=== PATIENT | female | born 1965 | race Caucasian/White ===

== ENCOUNTER 2016-11-11 15:58 | Inpatient (IN) ==
[2016-11-11] MEDS ORDERED: IOPAMIDOL 100 ML BOTTLE IJ ONE (15:59)
[2016-11-11] MEDS ORDERED: ONDANSETRON 4 MG/2 ML VIAL IV ONE (16:22)
[2016-11-11] MEDS ORDERED: fentaNYL 100 MCG/2 ML VIAL IV ONE (16:22)
[2016-11-11] MEDS ORDERED: 0.9 % SODIUM CHLORIDE 2,000 ML IV ONE (16:22)
[2016-11-11] MEDS ORDERED: cefTRIAXone 2 GM in DEXTROSE 5% IN WATER 50 ML IV ONE (16:26)
[2016-11-11] MEDS ORDERED: POTASSIUM CHLORIDE 40 MEQ in DEXTROSE 5% IN WATER 500 ML IV ONE (16:41)
[2016-11-11] MEDS ORDERED: POTASSIUM CHLORIDE 20 MEQ/10 ML VIAL IV ONE ×2 (16:59→22:06)
[2016-11-11 17:19] LABS: Basophils # (Auto) 0 K/mcL (0.0-0.3); Basophils % (Auto) 0 % (0.0-2.0); Eosinophils # (Auto) 0 K/mcL (0.0-0.7); Eosinophils % (Auto) 0 % (0.0-7.0); Lymphocytes # (Auto) 0.7 K/mcL (1.5-4.8); Lymphocytes % (Auto) 4.7 % (15.5-49.0); Mean Cell Volume 91.6 fL (80.0-100.0); Mean Corpuscular HGB Conc 32.8 g/dL (31.0-36.0); Mean Corpuscular Hemoglobin 30.1 pg (26.0-34.0); Monocytes % (Auto) 6.3 % (1.0-9.0); Platelet Count 210 K/mcL (140-440); RBC 4.52 M/mcL (4.00-5.20); Red Cell Distribution Width 12.3 % (11.5-14.5)
[2016-11-11] MEDS: HYDROmorphone 2 MG/ML SYRINGE IV PRN ×2 (17:27→18:02)
[2016-11-11 17:30] LABS: Appearance,Urine TURBID; Bacteria,Urine MOD /hpf (0); Bilirubin,Urine NEG (NEG); Color,Urine YELLOW; Glucose,Urine (UA) NEGATIVE (NEG); Leukocyte Esterase,Urine 500 /uL (NEG); Mucus,Urine MANY /hpf (0); Nitrate,Urine POS (NEG); Protein,Urine 100 mg/dL (NEG); Specific Gravity,Urine 1.017 (1.000-1.035); Urine Blood 0.03 mg/dL (<0.03); Urine RBC 43 /hpf (0-1); Urine Squamous Epithelial Cell 41 /hpf (0-4); Urine Transitional Epi Cells 3 /hpf (0-2); Urine WBC > 182 /hpf (0-4)
[2016-11-11 17:47] LABS: ALT/SGPT 26 U/l (0-40); Albumin 3.9 gm/dL (3.2-5.2); Albumin/Globulin Ratio 1.1 (1.0-2.3); Alkaline Phosphatase 133 U/L (39-117); Blood Urea Nitrogen 11 mg/dl (6-20); Lipase 8 U/L (7-60)
[2016-11-11] MEDS ORDERED: ACETAMINOPHEN 325 MG TABLET PO ONE (17:50)
[2016-11-11] MEDS ORDERED: PROMETHAZINE 25 MG/ML VIAL IV ONE (18:25)
[2016-11-11] MEDS ORDERED: PROMETHAZINE 25 MG/ML VIAL ONE (18:28)
--- NOTE | 2016-11-11 18:31 | Cat Scan Report ---
CLINICAL INFORMATION: UTI COMPARISON: None. TECHNIQUE: Following enteric contrast, 80 cc of Isovue-300 were injected intravenously, and 60 seconds later, 2.5 mm helical slices were obtained from the mid heart through the subtrochanteric regions. Following reconstruction, 2.5 mm sagittal, coronal and axial reformatted images were processed and reviewed at bone, lung and soft tissue windows. Five minutes later, 5 mm helical slices were obtained from the mid heart through the kidneys and viewed at soft tissue windows. FINDINGS: Lung bases show no abnormality - no effusion. The visualized heart is grossly normal Images should the abdomen show mild fatty change within the liver, but no focal lesion. The gallbladder is surgically absent. Common bile duct is mildly dilated - 9 mm likely due to post cholecystectomy papillary stenosis. The pancreas is unremarkable. Both adrenal glands, spleen and aorta including aortic branches are normal in size configuration and attenuation without focal lesion. Both kidneys are slightly enlarged and there is a moderate amount of perinephric inflammation and thickening of the transitional epithelium within the calyces, renal pelvis and ureter compatible with bilateral nephritis. There is no evidence of abscess, stone or hydronephrosis. Images should the pelvis show urinary bladder to be grossly normal. Hysterectomy changes are noted. The stomach, small large bowel are unremarkable. Bone windows show no osseous abnormality IMPRESSION: Inflammatory changes in the perinephric fat bilaterally and wall thickening of the transitional epithelium suggesting bilateral nephritis - more prominent on the right side. Given the bilaterality, it is more likely to be inflammatory than infectious. Post cholecystectomy papillary stenosis Interpreted and Authenticated by: Matthew Ramos 11/11/16
--- NOTE | 2016-11-11 19:00 | Emergency Department Note ---
Nausea/Vomiting/Diarrhea HPI - General Chief complaint: Nausea/Vomiting/Diarrhea Stated complaint: Vomiting Time Seen by Provider: 11/11/16 16:22 Source: patient Mode of arrival: ambulatory Limitations: no limitations - History of Present Illness HPI Narrative: 51-year-old female with malaise and fatigue since doing the polar plunge 4 days ago- jumped into freezing [place]. Complains of headache today starting at her occiput and neck and radiating up her head. Notes dysuria with increased frequency and urgency. Is having pain all over her abdomen but especially the lower quadrants. Nausea and vomiting unable to keep anything down. Also with fever 101 today - Related Data Home Medications Medication Instructions Recorded Confirmed Cyclobenzaprine [Flexeril] 10 mg PO DAILYP PRN 02/03/16 11/11/16 Etodolac [Etodolac ER] 400 mg PO DAILY 02/03/16 11/11/16 Levothyroxine [Synthroid] 100 mcg PO DAILY 02/03/16 11/11/16 Lovastatin [Altoprev] 20 mg PO DAILY 02/03/16 11/11/16 QUEtiapine FUMARATE [Seroquel] 50 mg PO DAILY 02/03/16 11/11/16 buPROPion [Wellbutrin Sr] 100 mg PO DAILY 02/03/16 11/11/16 busPIRone [Buspar] 0 mg PO BID 02/03/16 11/11/16 traMADol [Ultram] 50 mg PO DAILY 02/03/16 11/11/16 Gabapentin [Neurontin] 300 mg PO BID 09/05/16 11/11/16 Allergies Allergy/AdvReac Type Severity Reaction Status Date / Time No Known Drug Allergies Allergy Verified 11/11/16 16:01 Review of Systems All systems ED: reviewed and negative except as stated. Past Medical History - Past Medical History Attestation: Yes: The following information was validated with the patient. Medical history: Reports: hyperlipidemia, thyroid disease, other (low back pain) Surgical history ED: Reports: cholecystectomy, hysterectomy Psychiatric history: Reports: anxiety, bipolar - Social History smoking status: Current every day smoker (just quit 4 days ago) Alcohol use: Reports: Rarely Drug use: Reports: marijuana Physical Exam Some mild distress- tremor with chills. Diaphoretic .Normocephalic atraumatic. Conjunctiva clear sclerae white and anicteric. No nasal discharge or congestion. Oropharynx with dry buccal mucosa. Neck is supple without lymphadenopathy or thyromegaly. Heart is regular rate and rhythm no murmurs appreciated. Lungs are clear to auscultation bilaterally without wheezes rales rhonchi or respiratory distress. Abdomen is soft nondistended but tender diffusely especially suprapubic and flanks. No pedal edema. +2 radial pulse. Alert and oriented. No dysarthria ataxia. - General Limitations: no limitations Course Vital Signs Temperature 97.3 F L 11/11/16 15:58 Pulse Rate 100 H 11/11/16 15:58 Respiratory Rate 16 11/11/16 15:58 Blood Pressure 128/74 11/11/16 15:58 Pulse Oximetry (%) 98 11/11/16 15:58 Temperature 101 F H 11/11/16 17:55 Pulse Rate 91 H 11/11/16 18:15 Respiratory Rate 16 11/11/16 15:58 Blood Pressure 137/84 11/11/16 18:15 Pulse Oximetry (%) 100 11/11/16 18:15 Nausea/Vomiting/Diarrhea - Lab Data Lab results reviewed: Yes I reviewed the patient's lab results. Result diagrams: 11/11/16 16:27 11/11/16 16:27 Lab Results 11/11/16 11/11/16 11/11/16 Range/Units 16:27 16:27 16:31 WBC 15.3 H (4.5-11.0) K/mcL RBC 4.52 (4.00-5.20) M/mcL Hgb 13.6 (12.0-15.0) g/dL Hct 41.4 (36.0-48.0) % POC Hct 42.0 (36.0-48.0) % MCV 91.6 (80.0-100.0) fL MCH 30.1 (26.0-34.0) pg MCHC 32.8 (31.0-36.0) g/dL RDW 12.3 (11.5-14.5) % Plt Count 210 (140-440) K/mcL MPV 10.6 H (7.4-10.4) fL Gran % 89.0 H (38.0-78.0) % Lymph % (Auto) 4.7 L (15.5-49.0) % Josephine % (Auto) 6.3 (1.0-9.0) % Eos % (Auto) 0 (0.0-7.0) % Baso % (Auto) 0 (0.0-2.0) % Gran # 13.6 H (1.8-8.0) K/mcL Lymph # 0.7 L (1.5-4.8) K/mcL Josephine # 1.0 H (0.1-0.9) K/mcL Eos # 0 (0.0-0.7) K/mcL Baso # 0 (0.0-0.3) K/mcL Differential Comment (()) POC Sodium 137 (133-145) mmol/L Sodium 133 (133-145) mmol/L POC Potassium 2.7 L* (3.3-5.1) mmol/L Potassium 2.8 L* (3.3-5.1) mmol/L POC Chloride 96 (96-108) mmol/L Chloride 92 L (96-108) mmol/L Carbon Dioxide 21 L (22-30) mmol/L POC Total CO2 21 L (22-30) mmol/L Anion Gap 20.0 H (8-16) POC BUN 10 (6-20) mg/dl BUN 11 (6-20) mg/dl Creatinine 1.2 H (0.6-1.1) mg/dl POC Creatinine 1.1 (0.6-1.1) mg/dl GFR Calculation 52 Glucose 121 H (70-105) mg/dL POC Glucose 125 H (70-105) mg/dL Calcium 9.7 (8.6-10.4) mg/dl POC WB Ioniz Calcium 1.16 (1.16-1.32) mmol/L Total Bilirubin 1.1 H (0.0-1.0) mg/dL AST 27 (0-37) U/l ALT 26 (0-40) U/l Alkaline Phosphatase 133 H (39-117) U/L Total Protein 7.4 (5.9-8.4) gm/dL Albumin 3.9 (3.2-5.2) gm/dL Globulin 3.5 (2.2-3.7) gm/dL Albumin/Globulin Ratio 1.1 (1.0-2.3) Lipase 8 (7-60) U/L Urine Color Yellow Urine Appearance Turbid Urine pH 5.0 (5.0-9.0) Ur Specific [place] 1.017 (1.000-1.035) Urine Protein 100 A (NEG) mg/dL Urine Glucose (UA) Negative (NEG) mg/dL Urine Ketones Neg (NEG) mg/dL Urine Occult Blood 0.03 A (<0.03) mg/dL Urine Nitrate Pos A (NEG) Urine Bilirubin Neg (NEG) mg/dL Urine Urobilinogen 4.0 A (NEG) mg/dL Ur Leukocyte Esterase 500 A (NEG) /uL Urine RBC 43 H (0-1) /hpf Urine WBC > 182 H (0-4) /hpf Ur Squamous Epith Cells 41 H (0-4) /hpf Ur Transition Epith Cell 3 H (0-2) /hpf Urine Bacteria Mod A (0) /hpf Urine Mucus Many A (0) /hpf Ur Culture Indicated? No greater than10% bands - Radiology Data Radiology results reviewed: Yes I reviewed the patient's radiology results. CT scan of the abdomen and pelvis with contrast showed bilateral nephritis. - EKG Data EKG attestation: Yes I reviewed and interpreted this EKG. EKG results narrative: EKG shows a rate of 80 to normal sinus rhythm with upslope ST changes in all leads - likely normal Disposition Clinical Impression: Pyelonephritis, Hypokalemia Summary: Pyelonephritis infectious versus inflammatory with evidence of UTI and bilateral nephritis on CT scan. Start antibiotics after culture. Significant nausea and vomiting unable to hold anything down. Start IV fluids and given 3 rounds of antiemesis medicines- 2 times ondansetron and once Phenergan. I do not think she is able to go home but requires inpatient admission for IV antibiotics fluids and antiemetics. Additionally she has hypokalemia and is given a K rider Discussed with Dr. Morillo hospitalist who agreed to accept patient for transfer Disposition: Xfer As Inpt ([facility]) Condition: Fair Referrals: Minerva Lawson DO [Primary Care Provider] - Taisha Barbosa MD [Physician] -
--- NOTE | 2016-11-11 19:53 | Internal Med History&Physical ---
Medical - H&P: HPI Patient information: Note initiated : 11/11/16 at 7:43 pm Service Date, if different from initiated Date: [] Patient: Snehal Gallegos 51 y/o F admitted on for Vomiting. Chief Complaint: [] History of present illness: Ms. Gallegos is a 51 year old female who is in her normal state of health until this past Tuesday, 4 days ago, when she took the polar plunge in the local river. she says by that afternoonshe started to feel poorly and began to vomit. She has had intermittent vomiting ever since then. She's been running a fever and having chills Today it got so bad that she decided to come to the emergency room for evaluation. She's also had a headache and a mild sore throat. She also developed pain in her abdomen mainly towards the right groin area which she describes as sharp in nature. She says she had dysuria for a day or so and then that went away. She also has a vaginal discharge which is fairly new. She is sexually active, only with her . Emergency room evaluation showed a temperature of 101, white blood cell count of 15,000 with greater than 10% bands and pyuria and hypokalemia. She is now admitted for IV fluids, IV antibiotics, IV potassium replacement. she otherwise denies dizziness, new eye or ear symptoms, cough, chest pain or palpitations, shortness of breath or wheezing. She says she vomited food and drink, but nothing that looked like bladder coffee grounds. She denies diarrhea or constipation. past medical history: History of chronic low back pain due to a ruptured L5 disc History of depression and anxiety History of hyperlipidemia History of cholecystectomy hysterectomy, without oophorectomy, However, she believe she is currently in menopause. medications: BuSpar, dose uncertain, twice a day Wellbutrin 100 mg daily seroquel 50 mg daily Lovastatin 20 mg daily Levo thyroxine 100 mg daily Gabapentin 300 mg twice a day Etodolac 400 mg -3 times a day and Flexeril 10 mg daily when necessary Patient believe she stopped the tramadol sometime ago buprenorphine pain patch next Allergies: She has an adverse reaction to sertraline. Family history: Father had colon cancer and pancreas cancer. Mother had breast cancer. Both grandparents had cancer. Her brother has diabetes. He has 3 children who are alive and well. Social history: The patient is and works as a NURSING STUDENT. She smoked from the age of 44 until 51, and quit about 4 days ago. She does not use drugs, although she used to smoke marijuana almost daily. She stopped about 4 months ago. She says she drinks alcohol only occasionally. Medical - H&P: Meds Home Medications Medication Instructions Recorded Confirmed Type Cyclobenzaprine [Flexeril] 10 mg PO DAILYP PRN 02/03/16 11/11/16 History Etodolac [Etodolac ER] 400 mg PO DAILY 02/03/16 11/11/16 History Levothyroxine [Synthroid] 100 mcg PO DAILY 02/03/16 11/11/16 History Lovastatin [Altoprev] 20 mg PO DAILY 02/03/16 11/11/16 History QUEtiapine FUMARATE [Seroquel] 50 mg PO DAILY 02/03/16 11/11/16 History buPROPion [Wellbutrin Sr] 100 mg PO DAILY 02/03/16 11/11/16 History busPIRone [Buspar] 0 mg PO BID 02/03/16 11/11/16 History traMADol [Ultram] 50 mg PO DAILY 02/03/16 11/11/16 History Allergies Allergy/AdvReac Type Severity Reaction Status Date / Time sertraline [From Zoloft] AdvReac Verified 11/11/16 19:59 Medical - H&P: Exam - Constitutional Vitals: Temp Pulse Resp BP Pulse Ox 101 F H 91 H 16 137/84 100 11/11/16 17:55 11/11/16 18:15 11/11/16 15:58 11/11/16 18:15 11/11/16 18:15 Exam: on exam, she is a well-developed well-nourished white female, who grimaces occasionally from abdominal pain. Head: Normocephalic, atraumatic. Eyes: PERRLA, EOMI, anicteric. TMs and canals are clear bilaterally. Pharynx: Is clear, although her tongue has some white coating on it. She has a full upper plate in place, and lower dentition is in good condition. kaylin:Supple, without lymphadenopathy, JVD, thyromegaly, bruits Cardiac exam: Shows regular rate and rhythm, with normal S1 and S2, without murmurs, rubs, gallops. Lungs: Are clear to auscultation, without rales, rhonchi, wheezes. Abdomen: Is soft, but she does have some guarding, and has fairly markedly tenderness throughout. There is some degree of rebound. Bowel sounds are decreased. There is also left flank CVA tenderness but there does not appear to be tenderness on the right. extremities: Show no cyanosis, clubbing, edema. Neurologic exam is grossly intact. skin exam: Shows no rash or other worrisome lesions. She does have multiple tattoos. Medical - H&P: Reslt - Labs CBC & Chem 7: 11/11/16 16:27 11/11/16 16:27 Labs: Short CBC 11/11/16 Range/Units 16:27 WBC 15.3 H (4.5-11.0) K/mcL Hgb 13.6 (12.0-15.0) g/dL Hct 41.4 (36.0-48.0) % Plt Count 210 (140-440) K/mcL BMP 11/11/16 16:27 Sodium 133 Potassium 2.8 L* Chloride 92 L Carbon Dioxide 21 L BUN 11 Creatinine 1.2 H Glucose 121 H Calcium 9.7 Liver Function 11/11/16 Range/Units 16:27 Total Bilirubin 1.1 H (0.0-1.0) mg/dL AST 27 (0-37) U/l ALT 26 (0-40) U/l Alkaline Phosphatase 133 H (39-117) U/L Albumin 3.9 (3.2-5.2) gm/dL Urine 11/11/16 Range/Units 16:31 Urine Color Yellow Urine Appearance Turbid Urine pH 5.0 (5.0-9.0) Ur Specific [place] 1.017 (1.000-1.035) Urine Protein 100 A (NEG) mg/dL Urine Glucose (UA) Negative (NEG) mg/dL differential shows 13,600 granulocytes, with greater than 10% bands EKG shows normal sinus rhythm with slight ST saggingnoted in leads 2, after,V3 through V6. urinalysis is positive for nitrites and leukocyte esterase red blood cells white blood cells, squamous epithelial cells, bacteria. cT of the abdomen shows mild fatty change within the liver. Both kidneys are slightly enlarged with a moderate amount of perinephric inflammation and thickening compatible with bilateral nephritis. Medical - H&P: A/P (1) Depression with anxiety Current visit: Yes Status: Acute (2) Herniated lumbar intervertebral disc Current visit: Yes Status: Acute (3) Hyperlipidemia Current visit: Yes Status: Acute (4) Hypothyroid Current visit: Yes Status: Acute (5) Vaginal discharge Current visit: Yes Status: Acute (6) Menopausal and female climacteric states Current visit: Yes Status: Acute (7) Hypokalemia Current visit: Yes Status: Acute (8) Pyelonephritis Current visit: Yes Status: Acute #1. Infectious disease/renal. Patient presents with fever and vomiting, and CT scan suggestive of pyelonephritis. However,the kidney inflammation is bilateral, it would be unusual for infection. Her urinalysis did show lots of red and white cells, but was also probably a contaminated specimen. -She could have nephritis related to use of etodolac but says she has not been overusing that. -admit for IV fluids, IV Rocephin. -Try to get a clean caught urine specimen for culture.blood cultures are ordered as well. -Also consider screening the urine for GC and chlamydia. -Other possibilities for infectious etiologies, could be the river that she swam in but we will treat her for usual things and see how she does. -If she does not improve, I will request a renal consult. -IV pain and nausea meds as needed. #2. Hypokalemia. -This is likely due to her vomiting. This will be replaced IV. #3. CODE STATUS: Full code #4. DVT prophylaxis:subcutaneous heparin. early mobilization. #5.history of chronic pain. Continue her usual pain meds, except hold the etodolac. #6. History of depression and anxiety. Continue usual medications. #7. Hypothyroidism. Continue levothyroxinenext #8. Hyperlipidemia. I will probably hold the lovastatin for now. this visit took approximately 60 minutes, to review the case with the ER Jody. review her records and test results, interview and examine the patient, and write orders.
[2016-11-11] MEDS ORDERED: cefTRIAXone 1 GM in DEXTROSE 5% IN WATER 50 ML IV SCH (20:43)
[2016-11-11] MEDS ORDERED: MAGNESIUM HYDROXIDE 30 ML ORAL.SUSP PO PRN (20:43)
[2016-11-11] MEDS ORDERED: NALOXONE HCL 0.4 MG/ML VIAL IV PRN (20:43)
[2016-11-11] MEDS ORDERED: ONDANSETRON 4 MG/2 ML VIAL IV PRN (20:43)
[2016-11-11] MEDS ORDERED: DOCUSATE SODIUM 100 MG CAPSULE PO PRN (20:43)
[2016-11-11] MEDS: POTASSIUM CHLORIDE 30 MEQ in 0.45 % SODIUM CHLORIDE 1,000 ML IV SCH (22:06)
[2016-11-11] MEDS: 0.9 % SODIUM CHLORIDE 10 ML SYRINGE IV SCH (22:08)
[2016-11-11] MEDS: HEPARIN 5,000 UNIT/ML VIAL SQ SCH (22:08)
[2016-11-12 06:10] LABS: Appearance,Urine CLOUDY; Bacteria,Urine 0 /hpf (0); Bilirubin,Urine NEG (NEG); Color,Urine YELLOW; Glucose,Urine (UA) NEGATIVE (NEG); Leukocyte Esterase,Urine 500 /uL (NEG); Nitrate,Urine NEG (NEG); Protein,Urine 30 mg/dL (NEG); Specific Gravity,Urine 1.023 (1.000-1.035); Urine Blood 0.03 mg/dL (<0.03); Urine RBC 17 /hpf (0-1); Urine Squamous Epithelial Cell 1 /hpf (0-4); Urine WBC > 182 /hpf (0-4); Urobilinogen,Urine NEG (NEG)
[2016-11-12 06:20] LABS: Basophils # (Auto) 0 K/mcL (0.0-0.3); Basophils % (Auto) 0.1 % (0.0-2.0); Eosinophils # (Auto) 0 K/mcL (0.0-0.7); Eosinophils % (Auto) 0.1 % (0.0-7.0); Lymphocytes # (Auto) 0.7 K/mcL (1.5-4.8); Lymphocytes % (Auto) 6.4 % (15.5-49.0); Mean Cell Volume 92.9 fL (80.0-100.0); Mean Corpuscular HGB Conc 32.8 g/dL (31.0-36.0); Mean Corpuscular Hemoglobin 30.5 pg (26.0-34.0); Monocytes # (Auto) 1.1 K/mcL (0.1-0.9); Monocytes % (Auto) 9.4 % (1.0-9.0); Platelet Count 153 K/mcL (140-440); RBC 3.87 M/mcL (4.00-5.20)
[2016-11-12 06:54] LABS: ALT/SGPT 26 U/l (0-40); Albumin 3.1 gm/dL (3.2-5.2); Alkaline Phosphatase 114 U/L (39-117); Blood Urea Nitrogen 9 mg/dl (6-20)
[2016-11-12] MEDS: 0.9 % SODIUM CHLORIDE 10 ML SYRINGE IV SCH ×3 (07:23→22:24)
[2016-11-12] MEDS: POTASSIUM CHLORIDE 30 MEQ in 0.45 % SODIUM CHLORIDE 1,000 ML IV SCH ×2 (07:52→17:24)
[2016-11-12] MEDS: ACETAMINOPHEN 325 MG TABLET PO PRN ×3 (08:00→19:21)
[2016-11-12] MEDS: cefTRIAXone 1 GM in DEXTROSE 5% IN WATER 50 ML IV SCH (10:10)
[2016-11-12] MEDS: HEPARIN 5,000 UNIT/ML VIAL SQ SCH ×2 (10:10→21:57)
--- NOTE | 2016-11-12 14:29 | Nephrology Consult Note ---
History of Present Illness - Reason for Consult Patient information: Note initiated : 11/12/16 at 2:25 pm Service Date, if different from initiated Date: [] Patient: Snehal Gallegos 51 y/o F admitted on 11/11/16 for Vomiting/ Pyelonephritis, Hypokalemia. Chief Complaint: [] Consult date: 11/12/16 glomerulonephritis Requesting physician: Taisha Barbosa - Chief Complaint abdominal pain - History of Present Illness Ms Gallegos is a 51 y/o pleasant white female with PMH of dyslipidemia who is admitted with pyelonephritis Patient was fine until last Tuesday, she states that she took a polar plunge in the river Tuesday, that evening she started feeling bad, she started having fever , chills She states that she has had dysuria on and off since then she also had nausea, intermittent vomiting, poor appetite She also reports having vaginal discharge but this has resolved She denies h/o renal stones No diarrhea, had constipation but this has resolved has not used any meds recently Review of Systems All systems PM: reviewed and no additional remarkable complaints except as stated (as in HPI) Past History Past medical history: DYSLIPIDEMIA Past surgical history: hystrectomy Past family history: h/o DM and cancer in family, pt was not specific Past social history: smokes, has not smoked for the last 5 days drinks 1-2 times a year denies drug use used to work as a [employer] Medications and Allergies Home Medications Medication Instructions Recorded Confirmed Type Cyclobenzaprine [Flexeril] 10 mg PO DAILYP PRN 02/03/16 11/11/16 History Etodolac [Etodolac ER] 400 mg PO TID 02/03/16 11/11/16 History Levothyroxine [Synthroid] 100 mcg PO DAILY 02/03/16 11/11/16 History Lovastatin [Altoprev] 20 mg PO DAILY 02/03/16 11/11/16 History QUEtiapine FUMARATE [Seroquel] 50 mg PO DAILY 02/03/16 11/11/16 History buPROPion [Wellbutrin Sr] 100 mg PO DAILY 02/03/16 11/11/16 History busPIRone [Buspar] 0 mg PO BID 02/03/16 11/11/16 History traMADol [Ultram] 50 mg PO DAILY 02/03/16 11/11/16 History Allergies Allergy/AdvReac Type Severity Reaction Status Date / Time sertraline [From Zoloft] AdvReac Verified 11/11/16 19:59 Exam - Vital Signs Vital signs: Temp Pulse Resp BP Pulse Ox 102.2 F H 67 16 114/67 95 11/12/16 13:45 11/12/16 12:00 11/12/16 12:00 11/12/16 12:00 11/12/16 12:00 - General Appearance General appearance: appears started age EENT: mucous membranes moist Neck: no JVD Respiratory: clear Cardiology: no rub, no edema, regular rate, normal S1, normal S2 Gastrointestinal: tenderness, no guarding (NO RIGIDITY, Tenderness in right upper and lower quadrant ) Integumentary: no rash, warm and dry Neurologic: no focal deficit, no asterixis, alert and oriented x3 Musculoskeletal: no erythema, no cyanosis Psychiatric: mood/affect appropriate Results - Lab Results 11/12/16 04:05 11/12/16 04:05 Most recent lab results Calcium 8.5 mg/dl (8.6-10.4) L 11/12/16 04:05 Assessment and Plan (1) Acute renal failure s.creat was 1.2 on admission, has improved to 1.0 consult was mainly for pain and CT findings of nephritis Her UA shows proteinuria, hematuria and pyruia with + nitrite CT findings shows features s/o nephritis ?? etiology pain is in right upper and lower quadrant ? etiology Will obtain urine protein creatinine ratio will obtain renal (abdominal) and pelvic US continue with antibiotics continue with IV hydration Will follow along Status: Acute (2) Hypokalemia Status: Acute (3) Pyelonephritis Status: Acute
--- NOTE | 2016-11-12 16:37 | Ultrasound Report ---
CLINICAL INFORMATION: Right-sided abdominal pain COMPARISON: Abdomen and pelvic CT from 11/11/2016 FINDINGS: The gallbladder is surgically absent. The liver is normal in size and echotexture without focal lesion. The common bile is dilated - 8 mm compatible with post cholecystectomy papillary stenosis. Both kidneys are mildly enlarged and diffusely hypoechoic: The right is 13 x 5 cm and the left is 13 x 5.6 cm. No evidence of abscess, hydronephrosis or other focal renal abnormality. Spleen, aorta, IVC and pancreas are normal. No free fluid IMPRESSION: Minimal bilateral renal enlargement with decreased echotexture supportive of bilateral inflammation or other diffuse nephropathy Mild dilatation of the common bile duct suggestive of post cholecystomy papillary stenosis Interpreted and Authenticated by: Matthew Rmaos 11/12/16
--- NOTE | 2016-11-12 16:41 | Ultrasound Report ---
CLINICAL INFORMATION: Right-sided pelvic pain and vaginal discharge COMPARISON: None. FINDINGS: Uterus is surgically absent. Neither ovary is visualized - either atrophic or surgically resected. There is no evidence of abscess in the adnexa or other abnormality. Urinary bladder is grossly normal. IMPRESSION: Negative exam. Interpreted and Authenticated by: Matthew Ramos 11/12/16
--- NOTE | 2016-11-12 16:43 | Internal Med Progress Note ---
Medical - PN: Subj Patient information: Note initiated : 11/12/16 at 4:42 pm Service Date, if different from initiated Date: [] Patient: Snehal Gallegos 51 y/o F admitted on 11/11/16 for Vomiting/ Pyelonephritis, Hypokalemia. Chief Complaint: [] Interval history: November 11, 2016: History of present illness: Ms. Gallegos is a 51 year old female who is in her normal state of health until this past Tuesday, 4 days ago, when she took the polar plunge in the local river. she says by that afternoon she started to feel poorly and began to vomit. She has had intermittent vomiting ever since then. She's been running a fever and having chills Today it got so bad that she decided to come to the emergency room for evaluation. She's also had a headache and a mild sore throat. She also developed pain in her abdomen mainly towards the right groin area which she describes as sharp in nature. She says she had dysuria for a day or so and then that went away. She also has a vaginal discharge which is fairly new. She is sexually active, only with her . Emergency room evaluation showed a temperature of 101, white blood cell count of 15,000 with greater than 10% bands and pyuria and hypokalemia. She is now admitted for IV fluids, IV antibiotics, IV potassium replacement. she otherwise denies dizziness, new eye or ear symptoms, cough, chest pain or palpitations, shortness of breath or wheezing. She says she vomited food and drink, but nothing that looked like bladder coffee grounds. She denies diarrhea or constipation. november 12, 2016: today, when I entered the room, the patient was hyperventilating and was in a great deal of pain. She noted she was having very intense right groin area pain, that she described as sharp. She rated it as 8 out of 10. She also was having chills. She reports that she has had some intermittent nausea and headache, but she denies sore throat or cough, chest pain or shortness of breath. She no longer has dysuria and says her vaginal discharge has decreased. - Constitutional Vitals: Vital Signs Temp Pulse Resp BP Pulse Ox 98.8 F 67 16 114/67 95 11/12/16 14:30 11/12/16 12:00 11/12/16 12:00 11/12/16 12:00 11/12/16 12:00 Period Temp Pulse Resp BP Sys/Bray Pulse Ox Last 24 Hr 97.9 F-102.2 F 67-88 16-20 100-132/66-82 95-99 Intake and Output 11/12/16 11/12/16 11/12/16 05:59 13:59 21:59 Intake Total 500 / 500 1195 / 1195 Output Total 275 / 275 Balance 500 / 500 920 / 920 Weight 159 lb Patient Weight 11/13/16 05:59 Weight 159 lb Intake & Output: Intake & Output 11/12/16 11/12/16 11/12/16 05:59 13:59 21:59 Intake Total 500 / 500 1195 / 1195 Output Total 275 / 275 Balance 500 / 500 920 / 920 Weight 159 lb Intake: IV 1015 / 1015 Potassium Chloride 30 Meq 1015 / 1015 In Sodium Chloride 0.45% 1,000 ml @ 125 mls/hr IV .Q8H8M [facility] Rx#:[id number] Oral 500 / 500 180 / 180 Output: Void Amount 275 / 275 Other: Meal Breakfast Percent of Meal Consumed 75% Feeding Ability Independent # Voids 2 Exam: on exam, she was in quite a bit of distress initially. The pain eventually settled down. Neck is supple without obvious JVD. Cardiac exam shows regular rate and rhythm. Lungs are clear to auscultation. Abdomen is fairly soft, and minimally tender on the left side. She has a lot of guarding on the right. Extremities show no significant edema. Medical - PN: Obj Da - Labs CBC & Chem 7: 11/12/16 04:05 11/12/16 04:05 Labs: Abnormal Lab Results 11/12/16 11/12/16 11/12/16 04:05 04:05 02:42 WBC 11.6 H RBC 3.87 L Hgb 11.8 L MPV 10.9 H Gran % 84.0 H Lymph % (Auto) 6.4 L [place] % (Auto) 9.4 H Gran # 9.8 H Lymph # 0.7 L [place] # 1.1 H Calcium 8.5 L Albumin 3.1 L Urine Protein Urine Occult Blood Ur Leukocyte Esterase Urine RBC Urine WBC U [place] Prot/Creat Ratio 0.70 H 11/12/16 02:42 WBC RBC Hgb MPV Gran % Lymph % (Auto) [place] % (Auto) Gran # Lymph # [place] # Calcium Albumin Urine Protein 30 A Urine Occult Blood 0.03 A Ur Leukocyte Esterase 500 A Urine RBC 17 H Urine WBC > 182 H U [place] Prot/Creat Ratio EKG shows normal sinus rhythm with slight ST sagging noted in leads 2, after,V3 through V6. urinalysis is positive for nitrites and leukocyte esterase red blood cells white blood cells, squamous epithelial cells, bacteria. cT of the abdomen shows mild fatty change within the liver. Both kidneys are slightly enlarged with a moderate amount of perinephric inflammation and thickening compatible with bilateral nephritis. Meds: Medications Acetaminophen (Tylenol) 650 mg PO Q6HP PRN PRN Reason: PAIN/FEVER > 101 Last Admin: 11/12/16 13:45 Dose: 650 mg Docusate Sodium (Colace) 100 mg PO BID PRN PRN Reason: Constipation Last Admin: 11/11/16 22:08 Dose: 100 mg Heparin Sodium (Porcine) (Heparin) 5,000 unit SQ Q12 [facility] Last Admin: 11/12/16 10:10 Dose: 5,000 unit Potassium Chloride 30 meq/ (Sodium Chloride) 1,015 mls @ 125 mls/hr IV .Q8H8M [facility] Last Admin: 11/12/16 07:52 Dose: 125 mls/hr Ceftriaxone Sodium 1 gm/ (Dextrose) 50 mls @ 100 mls/hr IV DAILY [facility] Last Admin: 11/12/16 10:10 Dose: 100 mls/hr Magnesium Hydroxide (Milk Of Magnesia) 30 ml PO DAILYP PRN PRN Reason: Constipation Morphine Sulfate (Morphine) 2 mg IV Q4HP PRN PRN Reason: Pain Last Admin: 11/12/16 13:38 Dose: 2 mg Naloxone HCl (Narcan) 0.1 mg IV Q2MIN PRN PRN Reason: Opiate Reversal Ondansetron HCl (Zofran) 4 mg IV Q4HP PRN PRN Reason: Nausea And Vomiting Sodium Chloride (Saline Flush) 10 ml IV Q8 [facility] Last Admin: 11/12/16 15:46 Dose: Not Given Medical - PN: A/P - Time Spent With Patient Total time spent is greater than 50% in coordination of care (as documented) at patient's floor/unit and/or counseling patient: (1) Depression with anxiety Status: Acute Current Visit: Yes (2) Herniated lumbar intervertebral disc Status: Acute Current Visit: Yes (3) Hyperlipidemia Status: Acute Current Visit: Yes (4) Hypothyroid Status: Acute Current Visit: Yes (5) Vaginal discharge Status: Acute Current Visit: Yes (6) Menopausal and female climacteric states Status: Acute Current Visit: Yes (7) Hypokalemia Status: Acute Current Visit: Yes (8) Pyelonephritis Status: Acute Current Visit: Yes - Narrative A/P Narrative: #1. Infectious disease/renal. Patient presents with fever and vomiting, and CT scan suggestive of pyelonephritis. However,the kidney inflammation is bilateral, it would be unusual for infection. -leukocytosis has improved today, but the patient continues to be febrile and continues to have pain. I did contact Dr. Virgen from nephrology, and she also evaluated the patient. She has suggested a follow-up sonogram. -Continue IV Levaquin and iV fluids and IV pain meds and nausea meds. #2. Hypokalemia. -This is likely due to her vomiting. resolved. #3. CODE STATUS: Full code #4. DVT prophylaxis:subcutaneous heparin. early mobilization. #5.history of chronic pain. Continue her usual pain meds, except hold the etodolac. #6. History of depression and anxiety. Continue usual medications. #7. Hypothyroidism. Continue levothyroxine. #8. Hyperlipidemia. I will probably hold the lovastatin for now. Approximately 30 minutes was spent so far today, interviewing and examining the patient, reviewing test results, reviewing her case with staff and with nephrology, and writing orders. Medical - PN: Qual - VTE Deep Vein Thrombosis/Pulmonary Embolism Present on Admission: No
[2016-11-13] MEDS: POTASSIUM CHLORIDE 30 MEQ in 0.45 % SODIUM CHLORIDE 1,000 ML IV SCH ×3 (01:19→17:25)
[2016-11-13] MEDS: 0.9 % SODIUM CHLORIDE 10 ML SYRINGE IV SCH ×3 (05:36→22:19)
[2016-11-13 06:21] LABS: Basophils # (Auto) 0 K/mcL (0.0-0.3); Basophils % (Auto) 0.2 % (0.0-2.0); Eosinophils # (Auto) 0 K/mcL (0.0-0.7); Eosinophils % (Auto) 0.5 % (0.0-7.0); Granulocytes % (Auto) 79.3 % (38.0-78.0); Mean Corpuscular HGB Conc 32.8 g/dL (31.0-36.0); Mean Corpuscular Hemoglobin 30.2 pg (26.0-34.0); Platelet Count 179 K/mcL (140-440); RBC 3.93 M/mcL (4.00-5.20); Red Cell Distribution Width 12.5 % (11.5-14.5)
[2016-11-13 06:48] LABS: ALT/SGPT 31 U/l (0-40); Albumin 3.1 gm/dL (3.2-5.2); Albumin/Globulin Ratio 1.1 (1.0-2.3); Alkaline Phosphatase 121 U/L (39-117); Blood Urea Nitrogen 7 mg/dl (6-20)
[2016-11-13] MEDS: cefTRIAXone 1 GM in DEXTROSE 5% IN WATER 50 ML IV SCH (08:55)
[2016-11-13] MEDS: HEPARIN 5,000 UNIT/ML VIAL SQ SCH ×2 (08:56→20:47)
[2016-11-13] MEDS ORDERED: BUTALB/ACETAMINOPHEN/CAFFEINE 1 TABLET PO ONE (09:01)
--- NOTE | 2016-11-13 14:35 | Internal Med Progress Note ---
Medical - PN: Subj Patient information: Note initiated : 11/13/16 at 2:35 pm Service Date, if different from initiated Date: [] Patient: Snehal Gallegos 51 y/o F admitted on 11/11/16 for Vomiting/ Pyelonephritis, Hypokalemia. Chief Complaint: [] Interval history: November 11, 2016: History of present illness: Ms. Gallegos is a 51 year old female who is in her normal state of health until this past Tuesday, 4 days ago, when she [place] the [place] the local [place]. she says by that afternoon she started to feel poorly and began to vomit. She has had intermittent vomiting ever since then. She's been running a fever and having chills Today it got so bad that she decided to come to the emergency room for evaluation. She's also had a headache and a mild sore throat. She also developed pain in her abdomen mainly towards the right groin area which she describes as sharp in nature. She says she had dysuria for a day or so and then that went away. She also has a vaginal discharge which is fairly new. She is sexually active, only with her . Emergency room evaluation showed a temperature of 101, white blood cell count of 15,000 with greater than 10% bands and pyuria and hypokalemia. She is now admitted for IV fluids, IV antibiotics, IV potassium replacement. she otherwise denies dizziness, new eye or ear symptoms, cough, chest pain or palpitations, shortness of breath or wheezing. She says she vomited food and drink, but nothing that looked like bladder coffee grounds. She denies diarrhea or constipation. november 12, 2016: today, when I entered the room, the patient was hyperventilating and was in a great deal of pain. She noted she was having very intense right groin area pain, that she described as sharp. She rated it as 8 out of 10. She also was having chills. She reports that she has had some intermittent nausea and headache, but she denies sore throat or cough, chest pain or shortness of breath. She no longer has dysuria and says her vaginal discharge has decreased. November 13, 2016: today, the patient notes she is feeling quite a bit better. She is having much less pain in her right lower quadrant area. She did have a headache this morning that did not resolve with morphine or Tylenol, but seems to respond to Fioricet. He admits that she usually does drink coffee every day , but has not for the last few days. she did have a fever again this morning, associated with chills and notes also that her stool is quite loose, although she is not having abdominal pain or cramps. Otherwise she denies dizziness, chest pain or palpitations, shortness of breath , nausea or vomiting, dysuria. - Constitutional Vitals: Vital Signs Temp Pulse Resp BP Pulse Ox 97.0 F L 68 18 123/79 97 11/13/16 11:59 11/13/16 11:59 11/13/16 11:59 11/13/16 11:59 11/13/16 11:59 Period Temp Pulse Resp BP Sys/Bray Pulse Ox Last 24 Hr 97.0 F-101.9 F 68-83 16-20 122-138/74-84 96-99 Intake and Output 11/13/16 11/13/16 11/13/16 05:59 13:59 21:59 Intake Total 1840 / 1840 1015 / 1015 Balance 1840 / 1840 1015 / 1015 Intake & Output: Intake & Output 11/13/16 11/13/16 11/13/16 05:59 13:59 21:59 Intake Total 1840 / 1840 1015 / 1015 Balance 1840 / 1840 1015 / 1015 Intake: IV 990 / 990 1015 / 1015 Potassium Chloride 30 Meq 990 / 990 1015 / 1015 In Sodium Chloride 0.45% 1,000 ml @ 125 mls/hr IV .Q8H8M [facility] Rx#:[id number] Oral 850 / 850 Other: # Voids 2 Exam: on exam, she is smiling today, and appears much more comfortable. Neck is supple without lymphadenopathy or JVD. Cardiac exam shows regular rate and rhythm. Lungs are clear to auscultation. Abdomen: She does have some tenderness in the right upper quadrant area, but the left side and the right lower quadrant areas appear to have minimal tenderness today. There is no guarding or rebound. Bowel sounds are active. Extremities: Show no cyanosis or edema. Medical - PN: Obj Da - Labs CBC & Chem 7: 11/13/16 04:30 11/13/16 04:30 Labs: Abnormal Lab Results 11/13/16 11/13/16 11/12/16 04:30 04:30 04:05 WBC RBC 3.93 L Hgb 11.9 L MPV 10.8 H Gran % 79.3 H Lymph % (Auto) 10.0 L [place] % (Auto) 10.0 H Gran # 8.2 H Lymph # 1.0 L [place] # 1.0 H Calcium 8.5 L AST 40 H Alkaline Phosphatase 121 H Albumin 3.1 L 3.1 L Urine Protein Urine Occult Blood Ur Leukocyte Esterase Urine RBC Urine WBC U [place] Prot/Creat Ratio 11/12/16 11/12/16 11/12/16 04:05 02:42 02:42 WBC 11.6 H RBC 3.87 L Hgb 11.8 L MPV 10.9 H Gran % 84.0 H Lymph % (Auto) 6.4 L [place] % (Auto) 9.4 H Gran # 9.8 H Lymph # 0.7 L [place] # 1.1 H Calcium AST Alkaline Phosphatase Albumin Urine Protein 30 A Urine Occult Blood 0.03 A Ur Leukocyte Esterase 500 A Urine RBC 17 H Urine WBC > 182 H U [place] Prot/Creat Ratio 0.70 H EKG shows normal sinus rhythm with slight ST sagging noted in leads 2, after,V3 through V6. urinalysis is positive for nitrites and leukocyte esterase red blood cells white blood cells, squamous epithelial cells, bacteria. urine culture, collected after she was given her first round of antibiotics, showing no growth. blood cultures show no growth so far. cT of the abdomen shows mild fatty change within the liver. Both kidneys are slightly enlarged with a moderate amount of perinephric inflammation and thickening compatible with bilateral nephritis. pelvic ultrasound did not see either ovary, and there is no evidence of abscess and bladder appear normal. abdominal ultrasound showed surgically absent gallbladder Common bile duct is mildly dilated compatible withpost cholecystectomy status. Both kidneys were mildly enlarged. No other abnormalities are noted. Meds: Medications Acetaminophen (Tylenol) 650 mg PO Q6HP PRN PRN Reason: PAIN/FEVER > 101 Last Admin: 11/12/16 19:21 Dose: 650 mg Acetaminophen/Butalbital/Caffeine (Fioricet) 1 tab PO Q6HP PRN PRN Reason: Headache Docusate Sodium (Colace) 100 mg PO BID PRN PRN Reason: Constipation Last Admin: 11/11/16 22:08 Dose: 100 mg Heparin Sodium (Porcine) (Heparin) 5,000 unit SQ Q12 [facility] Last Admin: 11/13/16 08:56 Dose: 5,000 unit Potassium Chloride 30 meq/ (Sodium Chloride) 1,015 mls @ 125 mls/hr IV .Q8H8M [facility] Last Admin: 11/13/16 10:21 Dose: 125 mls/hr Ceftriaxone Sodium 1 gm/ (Dextrose) 50 mls @ 100 mls/hr IV DAILY [facility] Last Admin: 11/13/16 08:55 Dose: 100 mls/hr Magnesium Hydroxide (Milk Of Magnesia) 30 ml PO DAILYP PRN PRN Reason: Constipation Morphine Sulfate (Morphine) 2 mg IV Q4HP PRN PRN Reason: Pain Last Admin: 11/12/16 18:59 Dose: 2 mg Naloxone HCl (Narcan) 0.1 mg IV Q2MIN PRN PRN Reason: Opiate Reversal Ondansetron HCl (Zofran) 4 mg IV Q4HP PRN PRN Reason: Nausea And Vomiting Sodium Chloride (Saline Flush) 10 ml IV Q8 [facility] Last Admin: 11/13/16 13:25 Dose: Not Given Medical - PN: A/P - Time Spent With Patient Total time spent is greater than 50% in coordination of care (as documented) at patient's floor/unit and/or counseling patient: (1) Depression with anxiety Status: Acute Current Visit: Yes (2) Herniated lumbar intervertebral disc Status: Acute Current Visit: Yes (3) Hyperlipidemia Status: Acute Current Visit: Yes (4) Hypothyroid Status: Acute Current Visit: Yes (5) Vaginal discharge Status: Acute Current Visit: Yes (6) Menopausal and female climacteric states Status: Acute Current Visit: Yes (7) Hypokalemia Status: Acute Current Visit: Yes (8) Pyelonephritis Status: Acute Current Visit: Yes - Narrative A/P Narrative: #1. Infectious disease/renal. Patient presents with fever and vomiting, and CT scan suggestive of pyelonephritis. However,the kidney inflammation is bilateral, it would be unusual for infection. -leukocytosis, as well as clinical symptoms are improving. Continue IV Levaquin. #2. Hypokalemia. -This is likely due to her vomiting. resolved. #3. CODE STATUS: Full code #4. DVT prophylaxis:subcutaneous heparin. early mobilization. #5.history of chronic pain. Continue her usual pain meds, except hold the etodolac. #6. History of depression and anxiety. Continue usual medications. #7. Hypothyroidism. Continue levothyroxine. #8. Hyperlipidemia. I will probably hold the lovastatin for now. #9. Patient had significant headache today, which ultimately improved with Fioricet. She may have had a mild caffeine withdrawal headache. #10. AST and alkaline phosphatase are just a bit elevated today. Continue to follow this. 25 minutes was spent today, reviewing the patient's test results, interviewing and examining her, reviewing plan of care with staff, and writing orders. Medical - PN: Qual - VTE Deep Vein Thrombosis/Pulmonary Embolism Present on Admission: No
[2016-11-13] MEDS: BUTALB/ACETAMINOPHEN/CAFFEINE 1 TABLET PO PRN ×2 (15:18→20:47)
[2016-11-13] MEDS: ACETAMINOPHEN 325 MG TABLET PO PRN (19:19)
[2016-11-14] MEDS: POTASSIUM CHLORIDE 30 MEQ in 0.45 % SODIUM CHLORIDE 1,000 ML IV SCH ×3 (01:03→08:51)
[2016-11-14] MEDS: BUTALB/ACETAMINOPHEN/CAFFEINE 1 TABLET PO PRN (04:39)
[2016-11-14] MEDS: 0.9 % SODIUM CHLORIDE 10 ML SYRINGE IV SCH ×3 (05:33→22:42)
[2016-11-14 06:10] LABS: Basophils # (Auto) 0 K/mcL (0.0-0.3); Basophils % (Auto) 0.3 % (0.0-2.0); Eosinophils # (Auto) 0.1 K/mcL (0.0-0.7); Eosinophils % (Auto) 1.3 % (0.0-7.0); Granulocytes % (Auto) 73.4 % (38.0-78.0); Lymphocytes # (Auto) 1.4 K/mcL (1.5-4.8); Lymphocytes % (Auto) 14.1 % (15.5-49.0); Mean Cell Volume 91.5 fL (80.0-100.0); Mean Corpuscular HGB Conc 32.8 g/dL (31.0-36.0); Monocytes # (Auto) 1.1 K/mcL (0.1-0.9); Monocytes % (Auto) 10.9 % (1.0-9.0); Platelet Count 220 K/mcL (140-440); RBC 4.15 M/mcL (4.00-5.20); Red Cell Distribution Width 12.2 % (11.5-14.5)
[2016-11-14 06:45] LABS: ALT/SGPT 45 U/l (0-40); Albumin 3.4 gm/dL (3.2-5.2); Albumin/Globulin Ratio 0.9 (1.0-2.3); Alkaline Phosphatase 140 U/L (39-117); Blood Urea Nitrogen 6 mg/dl (6-20)
[2016-11-14] MEDS: cefTRIAXone 1 GM in DEXTROSE 5% IN WATER 50 ML IV SCH (08:50)
[2016-11-14] MEDS: HEPARIN 5,000 UNIT/ML VIAL SQ SCH ×2 (08:51→21:37)
[2016-11-14 11:26] LABS: Appearance,Urine CLEAR; Bilirubin,Urine NEG (NEG); Color,Urine YELLOW; Glucose,Urine (UA) NEGATIVE (NEG); Leukocyte Esterase,Urine NEG /uL (NEG); Nitrate,Urine NEG (NEG); Protein,Urine NEG (NEG); Specific Gravity,Urine 1.006 (1.000-1.035); Urine Blood NEG mg/dL (<0.03); Urobilinogen,Urine NEG (NEG)
--- NOTE | 2016-11-14 13:20 | Internal Med Progress Note ---
Medical - PN: Subj Patient information: Note initiated : 11/14/16 at 1:18 pm Service Date, if different from initiated Date: [] Patient: Snehal Gallegos 51 y/o F admitted on 11/11/16 for Vomiting/ Pyelonephritis, Hypokalemia. Chief Complaint: [] Interval history: November 11, 2016: History of present illness: Ms. Gallegos is a 51 year old female who is in her normal state of health until this past Tuesday, 4 days ago, when she took the polar plunge in the local river. she says by that afternoon she started to feel poorly and began to vomit. She has had intermittent vomiting ever since then. She's been running a fever and having chills Today it got so bad that she decided to come to the emergency room for evaluation. She's also had a headache and a mild sore throat. She also developed pain in her abdomen mainly towards the right groin area which she describes as sharp in nature. She says she had dysuria for a day or so and then that went away. She also has a vaginal discharge which is fairly new. She is sexually active, only with her . Emergency room evaluation showed a temperature of 101, white blood cell count of 15,000 with greater than 10% bands and pyuria and hypokalemia. She is now admitted for IV fluids, IV antibiotics, IV potassium replacement. she otherwise denies dizziness, new eye or ear symptoms, cough, chest pain or palpitations, shortness of breath or wheezing. She says she vomited food and drink, but nothing that looked like bladder coffee grounds. She denies diarrhea or constipation. november 12, 2016: today, when I entered the room, the patient was hyperventilating and was in a great deal of pain. She noted she was having very intense right groin area pain, that she described as sharp. She rated it as 8 out of 10. She also was having chills. She reports that she has had some intermittent nausea and headache, but she denies sore throat or cough, chest pain or shortness of breath. She no longer has dysuria and says her vaginal discharge has decreased. November 13, 2016: today, the patient notes she is feeling quite a bit better. She is having much less pain in her right lower quadrant area. She did have a headache this morning that did not resolve with morphine or Tylenol, but seems to respond to Fioricet. He admits that she usually does drink coffee every day , but has not for the last few days. she did have a fever again this morning, associated with chills and notes also that her stool is quite loose, although she is not having abdominal pain or cramps. Otherwise she denies dizziness, chest pain or palpitations, shortness of breath , nausea or vomiting, dysuria. November 14, 2016: the patient had a fever again last night, of 100.8, associated with chills. However, this morning, she is feeling fine. She is not having anymore pain She has no dysuria or flank pain, abdominal pain, nausea or vomiting. she is not currently having fever or chills, chest pain or shortness of breath. -she does mention today, that her has a history of hepatitis C, but was treated for that and cured. - Constitutional Vitals: Vital Signs Temp Pulse Resp BP Pulse Ox 96.4 F L 66 18 135/78 94 11/14/16 11:11 11/14/16 11:11 11/14/16 11:11 11/14/16 11:11 11/14/16 11:11 Period Temp Pulse Resp BP Sys/Bray Pulse Ox Last 24 Hr 96.4 F-100.8 F 64-75 16-20 105-146/66-91 94-99 Intake and Output 11/13/16 11/14/16 11/14/16 21:59 05:59 13:59 Intake Total 1949 1615 / 1615 1040 / 1040 Output Total 350 / 350 Balance 1949 1615 / 1615 690 / 690 Weight 159 lb Intake & Output: Intake & Output 11/13/16 11/14/16 11/14/16 21:59 05:59 13:59 Intake Total 1949 1615 / 1615 1040 / 1040 Output Total 350 / 350 Balance 1949 1615 / 1615 690 / 690 Weight 159 lb Intake: IV 1050 / 1050 1015 / 1015 Potassium Chloride 30 Meq 1000 / 1000 1015 / 1015 In Sodium Chloride 0.45% 1,000 ml @ 125 mls/hr IV .Q8H8M [facility] Rx#:[id number] Dextrose 5% in Water 50 50 / 50 ml @ 100 mls/hr IV DAILY MATTY with Rocephin 1 gm Rx #:[id number] Oral 900 / 900 600 / 600 1040 / 1040 Output: Void Amount 350 / 350 Other: Meal Lunch Lunch Percent of Meal Consumed 50% 100% # Voids 1 1 Exam: on exam, she is smiling today, and appears much more comfortable.he is sitting in a chair and appears calm and happy. Neck is supple without lymphadenopathy or JVD. Cardiac exam shows regular rate and rhythm. Lungs are clear to auscultation. Abdomen: abdomen today is soft and nontender, without guarding or rebound. Extremities: Show no cyanosis or edema. Medical - PN: Obj Da - Labs CBC & Chem 7: 11/14/16 04:50 11/14/16 04:50 Labs: Abnormal Lab Results 11/14/16 11/14/16 11/13/16 04:50 04:50 04:30 WBC RBC Hgb MPV Gran % Lymph % (Auto) 14.1 L [place] % (Auto) 10.9 H Gran # Lymph # 1.4 L [place] # 1.1 H Calcium AST 58 H 40 H ALT 45 H Alkaline Phosphatase 140 H 121 H Albumin 3.1 L Albumin/Globulin Ratio 0.9 L Urine Protein Urine Occult Blood Ur Leukocyte Esterase Urine RBC Urine WBC U [place] Prot/Creat Ratio 11/13/16 11/12/16 11/12/16 04:30 04:05 04:05 WBC 11.6 H RBC 3.93 L 3.87 L Hgb 11.9 L 11.8 L MPV 10.8 H 10.9 H Gran % 79.3 H 84.0 H Lymph % (Auto) 10.0 L 6.4 L [place] % (Auto) 10.0 H 9.4 H Gran # 8.2 H 9.8 H Lymph # 1.0 L 0.7 L [place] # 1.0 H 1.1 H Calcium 8.5 L AST ALT Alkaline Phosphatase Albumin 3.1 L Albumin/Globulin Ratio Urine Protein Urine Occult Blood Ur Leukocyte Esterase Urine RBC Urine WBC U [place] Prot/Creat Ratio 11/12/16 11/12/16 02:42 02:42 WBC RBC Hgb MPV Gran % Lymph % (Auto) [place] % (Auto) Gran # Lymph # [place] # Calcium AST ALT Alkaline Phosphatase Albumin Albumin/Globulin Ratio Urine Protein 30 A Urine Occult Blood 0.03 A Ur Leukocyte Esterase 500 A Urine RBC 17 H Urine WBC > 182 H U [place] Prot/Creat Ratio 0.70 H repeat urinalysis from today, 11/14/16:shows pH of 6, specific gravity 1.006, and is otherwise negative. EKG shows normal sinus rhythm with slight ST sagging noted in leads 2, after,V3 through V6. 11/11/16:urinalysis is positive for nitrites and leukocyte esterase red blood cells white blood cells, squamous epithelial cells, bacteria. urine culture, collected after she was given her first round of antibiotics, showing no growth. blood cultures show no growth so far. cT of the abdomen shows mild fatty change within the liver. Both kidneys are slightly enlarged with a moderate amount of perinephric inflammation and thickening compatible with bilateral nephritis. pelvic ultrasound did not see either ovary, and there is no evidence of abscess and bladder appear normal. abdominal ultrasound showed surgically absent gallbladder Common bile duct is mildly dilated compatible withpost cholecystectomy status. Both kidneys were mildly enlarged. No other abnormalities are noted. Meds: Medications Acetaminophen (Tylenol) 650 mg PO Q6HP PRN PRN Reason: PAIN/FEVER > 101 Last Admin: 11/13/16 19:19 Dose: 650 mg Acetaminophen/Butalbital/Caffeine (Fioricet) 1 tab PO Q6HP PRN PRN Reason: Headache Last Admin: 11/14/16 04:39 Dose: 1 tab Docusate Sodium (Colace) 100 mg PO BID PRN PRN Reason: Constipation Last Admin: 11/11/16 22:08 Dose: 100 mg Heparin Sodium (Porcine) (Heparin) 5,000 unit SQ Q12 MATTY Last Admin: 11/14/16 08:51 Dose: Not Given Ceftriaxone Sodium 1 gm/ (Dextrose) 50 mls @ 100 mls/hr IV DAILY MATTY Last Admin: 11/14/16 08:50 Dose: 100 mls/hr Magnesium Hydroxide (Milk Of Magnesia) 30 ml PO DAILYP PRN PRN Reason: Constipation Morphine Sulfate (Morphine) 2 mg IV Q4HP PRN PRN Reason: Pain Last Admin: 11/12/16 18:59 Dose: 2 mg Naloxone HCl (Narcan) 0.1 mg IV Q2MIN PRN PRN Reason: Opiate Reversal Ondansetron HCl (Zofran) 4 mg IV Q4HP PRN PRN Reason: Nausea And Vomiting Sodium Chloride (Saline Flush) 10 ml IV Q8 [facility] Last Admin: 11/14/16 05:33 Dose: Not Given Medical - PN: A/P - Time Spent With Patient Total time spent is greater than 50% in coordination of care (as documented) at patient's floor/unit and/or counseling patient: (1) Depression with anxiety Status: Acute Current Visit: Yes (2) Herniated lumbar intervertebral disc Status: Acute Current Visit: Yes (3) Hyperlipidemia Status: Acute Current Visit: Yes (4) Hypothyroid Status: Acute Current Visit: Yes (5) Vaginal discharge Status: Acute Current Visit: Yes (6) Menopausal and female climacteric states Status: Acute Current Visit: Yes (7) Hypokalemia Status: Acute Current Visit: Yes (8) Pyelonephritis Status: Acute Current Visit: Yes - Narrative A/P Narrative: #1. Infectious disease/renal. Patient presents with fever and vomiting, and CT scan suggestive of pyelonephritis. However,the kidney inflammation is bilateral, it would be unusual for infection. -leukocytosis, as well as clinical symptoms are improving. Continue IV Levaquin. -fortunately, her abdominal and flank pain have resolved. We did not discover any proof of kidney stones. Her bilateral kidney inflammation on CT, is not well explained, but otherwise she appears to be responding to treatment for pyelonephritis. -Unfortunately, and somewhat unexpectedly, she continues to spike fevers at night.. she really looks quite well this morning, but I reviewed things with Dr. Virgen from nephrology, and we all agree it might be better to watch her one more night, to see if she continues to spike fevers at night. Hopefully, tomorrow, she can be discharged to home, on oral Levaquin. #2. Hypokalemia. -This is likely due to her vomiting. resolved. #3. CODE STATUS: Full code #4. DVT prophylaxis:subcutaneous heparin. early mobilization. #5.history of chronic pain. Continue her usual pain meds, except hold the etodolac. #6. History of depression and anxiety. Continue usual medications. #7. Hypothyroidism. Continue levothyroxine. #8. Hyperlipidemia. I will probably hold the lovastatin for now. #9. Patient had significant headache today, which ultimately improved with Fioricet. She may have had a mild caffeine withdrawal headache. #10. AST and alkaline phosphatase are just a bit elevated today. hese continue to creep up. Today, the patient tells me thather previously had hepatitis C, and was treated for cure. I will check a hepatitis screening panel. 25 minutes was spent today, reviewing the patient's test results, interviewing and examining her, reviewing plan of care with staff, and writing orders. Medical - PN: Qual - VTE Deep Vein Thrombosis/Pulmonary Embolism Present on Admission: No
[2016-11-14 16:00] LABS: ALT/SGPT 51 U/l (0-40); Albumin 3.4 gm/dL (3.2-5.2); Alkaline Phosphatase 146 U/L (39-117); Bilirubin,Direct < 0.2 mg/dL (0.0-0.3)
[2016-11-14] MEDS: ACETAMINOPHEN 325 MG TABLET PO PRN ×2 (17:38→23:38)
[2016-11-15] MEDS: 0.9 % SODIUM CHLORIDE 10 ML SYRINGE IV SCH ×2 (05:09→09:01)
[2016-11-15 06:03] LABS: Basophils # (Auto) 0 K/mcL (0.0-0.3); Basophils % (Auto) 0.4 % (0.0-2.0); Eosinophils # (Auto) 0.2 K/mcL (0.0-0.7); Eosinophils % (Auto) 1.9 % (0.0-7.0); Granulocytes % (Auto) 66.1 % (38.0-78.0); Lymphocytes # (Auto) 1.9 K/mcL (1.5-4.8); Lymphocytes % (Auto) 18.7 % (15.5-49.0); Mean Cell Volume 92.4 fL (80.0-100.0); Mean Corpuscular HGB Conc 32.7 g/dL (31.0-36.0); Mean Corpuscular Hemoglobin 30.2 pg (26.0-34.0); Monocytes # (Auto) 1.3 K/mcL (0.1-0.9); Monocytes % (Auto) 12.9 % (1.0-9.0); Platelet Count 250 K/mcL (140-440); RBC 3.98 M/mcL (4.00-5.20); Red Cell Distribution Width 12.3 % (11.5-14.5)
[2016-11-15 06:52] LABS: ALT/SGPT 41 U/l (0-40); Albumin 3.2 gm/dL (3.2-5.2); Albumin/Globulin Ratio 0.9 (1.0-2.3); Alkaline Phosphatase 136 U/L (39-117); Blood Urea Nitrogen 5 mg/dl (6-20)
[2016-11-15] MEDS: cefTRIAXone 1 GM in DEXTROSE 5% IN WATER 50 ML IV SCH (08:58)
[2016-11-15] MEDS: HEPARIN 5,000 UNIT/ML VIAL SQ SCH ×2 (09:00→09:01)
[2016-11-15 09:01] LABS: C-Reactive Protein 16.3 mg/dl (0.0-0.8); Complement C3 169.7 mg/dl (90-180)
--- NOTE | 2016-11-15 13:28 | Discharge Summary ---
Medical - DS: Prov Patient information: Note initiated : 11/15/16 at 1:26 pm Service Date, if different from initiated Date: [] Patient: Snehal Gallegos 51 y/o F admitted on 11/11/16 for Vomiting/ Pyelonephritis, Hypokalemia. Chief Complaint: [] Date of admission: 11/11/16 21:10 Discharge date: 11/15/16 Primary care physician: [f_Reg Prim Care Provider] Admitting clinician: Taisha Barbosa Consults: 11/12/16 14:25 Consult to Physician [CONS] Routine Comment: Consulting Provider: Nava Virgen Reason For Exam: Physician to Consult Discharging clinician: Stephan Tate Medical - DS: Meds - Discharge Medications Prescriptions: Ciprofloxacin HCl [Cipro] 500 mg PO BID #20 tablet Active and Home Medications: Active Medications Acetaminophen (Tylenol) 650 mg PO Q6HP PRN PRN Reason: PAIN/FEVER > 101 Last Admin: 11/14/16 23:38 Dose: 650 mg Acetaminophen/Butalbital/Caffeine (Fioricet) 1 tab PO Q6HP PRN PRN Reason: Headache Last Admin: 11/14/16 04:39 Dose: 1 tab Docusate Sodium (Colace) 100 mg PO BID PRN PRN Reason: Constipation Last Admin: 11/11/16 22:08 Dose: 100 mg Heparin Sodium (Porcine) (Heparin) 5,000 unit SQ Q12 [facility] Last Admin: 11/15/16 09:01 Dose: Not Given Ceftriaxone Sodium 1 gm/ (Dextrose) 50 mls @ 100 mls/hr IV DAILY [facility] Last Admin: 11/15/16 08:58 Dose: 100 mls/hr Magnesium Hydroxide (Milk Of Magnesia) 30 ml PO DAILYP PRN PRN Reason: Constipation Morphine Sulfate (Morphine) 2 mg IV Q4HP PRN PRN Reason: Pain Last Admin: 11/12/16 18:59 Dose: 2 mg Naloxone HCl (Narcan) 0.1 mg IV Q2MIN PRN PRN Reason: Opiate Reversal Ondansetron HCl (Zofran) 4 mg IV Q4HP PRN PRN Reason: Nausea And Vomiting Sodium Chloride (Saline Flush) 10 ml IV Q8 [facility] Last Admin: 11/15/16 09:01 Dose: 10 ml Medical - DS: Hosp Hospital course: Ms. Gallegos is a 51 year old female admitted to the hospital with flank pain, feve, sepsis, and abnormal UA the patient underwent a CT Abdomen and pelvis which showed marvin nephrititis , possible inflammatory in nature, vs infectious. The patient was started on rocephin for UTI, The patient responded to the treatment well, her urine culture was negative, it seems to have been done after antibiotics were given. The patient did keep on spiking mild fevers which subsided on the day of discharge. The patient will need total of 14 days of abx, given possible pyelonephritis, she will be given ciprofloxacin 500mg bid for another 10 days. The patient unusual presentation for bilateral nephritis raises suspicion for inflammatory etiology for the patients presentation. She had USG abdomen which also showed mildly enlarged kdineys, her crp and esr are elevated, which can be in seen in pyelo also. At present given that the patient is clinically improving, she will follow up with nephrology as outpatient. Her Hep C and ASHLEY screen is pending, she does not have hematuria or protienuria on repeat ua, and her c3 and c4 are normal. Therefore for now we will only have her follow up with nephrology. her pelvis usg was negative - Time Spent with Patient Total time spent providing and/or coordinating discharge services: Less than 30 minutes Medical - DS: Exam - Constitutional Vitals: Vital Signs Temp Pulse Resp BP Pulse Ox 11/15/16 12:00 98.0 F 73 18 134/74 100 11/15/16 07:41 97.3 F L 62 18 125/75 98 11/15/16 03:53 98.7 F 64 18 123/76 98 11/14/16 23:38 100.1 F H 11/14/16 23:31 100.1 F H 70 18 120/69 96 11/14/16 20:00 97.4 F L 69 16 129/83 97 11/14/16 15:37 98.8 F 73 16 131/83 97 Intake and Output 11/14/16 11/15/16 11/15/16 21:59 05:59 13:59 Intake Total 1630 / 1630 600 / 600 480 / 480 Balance 1630 / 1630 600 / 600 480 / 480 Intake: IV 50 / 50 Dextrose 5% in Water 50 50 / 50 ml @ 100 mls/hr IV DAILY MATTY with Rocephin 1 gm Rx #:[id number] Oral 1580 / 1580 600 / 600 480 / 480 Other: Meal Dinner Breakfast Percent of Meal Consumed 0% 100% Feeding Ability Independent # Voids 2 1 # Bowel Movements 1 Weight 160 lb General appearance: cooperative, no acute distress - Head Head exam: Present: atraumatic, normal inspection, normocephalic - Eye Eye exam: Present: normal appearance. Absent: periorbital swelling, periorbital tenderness, scleral icterus Pupils: Present: normal accommodation, PERRL - ENT ENT exam: Present: mucous membranes moist - Respiratory Respiratory exam: Present: normal respiratory exam. Absent: accessory muscle use, respiratory distress, rhonchi, stridor, wheezes - Cardiovascular Cardiovascular exam: Present: normal rate and rhythm, +S1, +S2 - GI/Abdominal GI/Abdominal exam: Present: normal bowel sounds, soft. Absent: firm, rigid, tenderness - Neurological Exam Neurological exam: Present: alert, CN II-XII intact, oriented X3. Absent: motor sensory deficit Medical - DS: Data Labs on day of discharge: Labs from last 24 hours 11/15/16 11/15/16 11/15/16 08:01 08:01 08:01 WBC RBC Hgb Hct MCV MCH MCHC RDW Plt Count MPV Gran % Lymph % (Auto) [place] % (Auto) Eos % (Auto) Baso % (Auto) Gran # Lymph # [place] # Eos # Baso # ESR Sodium Potassium Chloride Carbon Dioxide Anion Gap BUN Creatinine GFR Calculation Glucose Calcium Total Bilirubin Direct Bilirubin AST ALT Alkaline Phosphatase C-Reactive Protein 16.3 H Total Protein Albumin Globulin Albumin/Globulin Ratio ASHLEY Screen Pending Complement C3 169.7 Complement C4 19.4 11/15/16 11/15/16 11/15/16 08:01 04:30 04:30 WBC 9.9 RBC 3.98 L Hgb 12.0 Hct 36.8 MCV 92.4 MCH 30.2 MCHC 32.7 RDW 12.3 Plt Count 250 MPV 10.0 Gran % 66.1 Lymph % (Auto) 18.7 [place] % (Auto) 12.9 H Eos % (Auto) 1.9 Baso % (Auto) 0.4 Gran # 6.6 Lymph # 1.9 [place] # 1.3 H Eos # 0.2 Baso # 0 ESR 86 H Sodium 140 Potassium 3.3 Chloride 102 Carbon Dioxide 25 Anion Gap 13.0 BUN 5 L Creatinine 0.7 GFR Calculation 100 Glucose 89 Calcium 9.2 Total Bilirubin 0.5 Direct Bilirubin AST 42 H ALT 41 H Alkaline Phosphatase 136 H C-Reactive Protein Total Protein 6.6 Albumin 3.2 Globulin 3.4 Albumin/Globulin Ratio 0.9 L ASHLEY Screen Complement C3 Complement C4 11/14/16 15:00 WBC RBC Hgb Hct MCV MCH MCHC RDW Plt Count MPV Gran % Lymph % (Auto) [place] % (Auto) Eos % (Auto) Baso % (Auto) Gran # Lymph # [place] # Eos # Baso # ESR Sodium Potassium Chloride Carbon Dioxide Anion Gap BUN Creatinine GFR Calculation Glucose Calcium Total Bilirubin 0.5 Direct Bilirubin < 0.2 AST 67 H ALT 51 H Alkaline Phosphatase 146 H C-Reactive Protein Total Protein 7.2 Albumin 3.4 Globulin 3.8 H Albumin/Globulin Ratio ASHLEY Screen Complement C3 Complement C4 Medical - DS: A/P - Patient/Caregiver Discharge Instructions Activity: resume usual activities as tolerated Diet: Regular Diet Additional Instructions: Follow up with PCP in 7d ays FOllow up with Dr Virgen, nephrology in 2-3 weeks. - Follow up Plan Follow up with: Minerva Lawson DO [Primary Care Provider] - Disposition: Home, Self-Care Prognosis: Good Rehab Potential: Good I certify that the patient requires SNF services: No Overall status at discharge: patient is progressing back to baseline Medical - DS: Qual - VTE Deep Vein Thrombosis/Pulmonary Embolism Present on Admission: No
== END 2016-11-15 14:30 | disposition home or self-care (01) | DRG 690 ==
LOC: ED 15:58 → MEDSUR 21:10
PROVIDERS: ADMIT Internal Medicine; ATTEND Internal Medicine